=== PATIENT | female | born 1950 | race Caucasian/White ===

== ENCOUNTER 2019-11-09 08:39 | Day surgery (SDC) | payer MEDICARE, OTHER ==
[~2019-11-09] VITALS: Ht 157.5 cm; Wt 77.3 kg
[2019-11-09] MEDS ORDERED: TRIAMTERENE-HC1 EAC3 PO (09:27)
[2019-11-09] MEDS ORDERED: XALATAN 0.0052.5 ML EACH EYE (09:28)
[2019-11-09 09:34] LABS: HEMATOCRIT 46.1 % (36.0-48.0); LYMPHOCYTES 39.4 % (15-50); MCH 30.8 pg (26.0-34.0); MCHC 32.5 g/dL (31.0-37.0); MCV 94.7 fL (80.0-100.0); MEAN PLATELET VOLUME 10.4 fL (7.4-10.4); NEUTROPHILS 50.2 % (40-80); PLATELET COUNT 242 10x3/uL (130-400); RBC 4.87 10x6/uL (4.00-5.40); RDW 13.4 % (11.5-14.5); WBC 7.2 10x3/uL (4.8-10.8)
[2019-11-09 09:41] LABS: CALCIUM 8.8 mg/dL (8.5-10.1); CARBON DIOXIDE 29.1 mmol/L (21.0-32.0); CREATININE - SERUM 1.1 mg/dL (0.6-1.3); POTASSIUM - SERUM 4.1 mmol/L (3.5-5.1)
[2019-11-09 09:54] VITALS: BP 144/86; Ht 157.5 cm; Wt 77.3 kg
--- NOTE | 2019-11-09 12:37 | HP ---
PATIENT: DARIO PEARSON MEDICAL RECORD: [id number] ACCOUNT: [id number] LOCATION:[facility] : 46 ADMISSION DATE: 11/09/19 PCP: YESSENIA NO MD HISTORY AND PHYSICAL EXAMINATION HISTORY OF PRESENT ILLNESS: The patient had a number of polyps during her last colonoscopy. She had 2 that were worrisome, one was a 2 cm appendiceal orifice polyp and the other was a 2-3 cm hepatic flexure polyp. The patient is here to undergo colonoscopy with polypectomy. PAST MEDICAL AND SURGICAL HISTORY: History of colon polyps, history of cholecystectomy, history of hysterectomy. Positive for hypertension and glaucoma. SOCIAL HISTORY: The patient is a smoker. FAMILY HISTORY: Father had a pharyngeal neoplasm. Mother had a lung neoplasm. HOME MEDICINES: Please see the nursing list. ALLERGIES: No known drug allergies. PHYSICAL EXAMINATION: GENERAL: The patient does not appear acutely ill. He does not appear chronically ill. VITAL SIGNS: Reviewed. EARS: External ears appear normal. EYES: Extraocular movements are intact. NECK: Trachea is midline. CHEST: No intercostal retractions. PULMONARY: Nonlabored, no stridor. IMPRESSION: 1. Hepatic flexure polyp. 2. Appendiceal orifice polyp. PLAN: Colonoscopy with polypectomies. TRANSINT:[id number] Voice Confirmation ID: [id number] DOCUMENT ID: [id number] ROSA ADAMES MD at 1237 CC: ROE LUNSFORD MD and YESSENIA NO MD [id number] DICTATION DATE: 11/09/19 1118 VETERINARY MICROBIOLOGIST: 11/09/19 1131 [facility] [address] [place] [address]
--- NOTE | 2019-11-09 14:22 | NUR ---
1206-RECD TO ROOM FROM GI LAB 1236-TOLERATES LIQUIDS WITHOUT NAUSEA. IV D/C 1240-DR ADAMES HERE TO REPORT FINDINGS 1305-DISCHARGE INSTRUCTIONS REVIEWED, D/C HOME VIA WHEELCHAIR TO .
--- NOTE | 2019-11-12 11:06 | OP ---
PATIENT NAME: DARIO PEARSON MEDICAL RECORD: [id number] :46 LOCATION:[facility] ADMISSION DATE: SURGEON: WILIAM ADAMES MD DATE OF OPERATION: 11/09/2019 PREOPERATIVE DIAGNOSIS: 1. History of an appendiceal orifice polyp. 2. History of a tattooed hepatic flexure polyp. POSTOPERATIVE DIAGNOSES: 1. History of a hepatic flexure polyp, which has been tattooed. 2. No evidence of a residual appendiceal orifice polyp. 3. Nine small colorectal polyps, all sessile, all less than 1 cm. PROCEDURE: Total colonoscopy the cecum Biopsy forceps polypectomy x1. Endoscopic ablation of 9 small sessile colorectal polyps with the argon plasma pie maker. SURGEON: Wiliam Adames MD STRATEGIC MARKETING SPECIALIST: None. BLOOD LOSS: Minimal. ANESTHESIA: IV sedation. COMPLICATIONS: None. The risks, possible complications and alternatives to the procedure were explained to the patient. He elects to proceed. The discussion specifically included, but was not limited to, bleeding requiring emergency reoperation, infection, and endoscopic perforation. OPERATIVE COURSE: The patient was conveyed to endoscopy suite electively on 11/09/2019. IV sedation was induced by the anesthesia staff. The patient was placed in the Martinez position. A digital rectal examination was performed. A colonoscope was inserted through the anus. It was easily advanced to the cecum. The prep was adequate. I scrutinized the cecum and the appendiceal orifice and I noted no evidence of a recurrent or persistent polyp. I think patient's rustic fence builder performed enough knife biopsies that the entire polyp was removed. I slowly withdrew the endoscope. A combination of normal imaging and narrow band imaging were utilized. At the hepatic flexure, a polyp was noted. It was removed utilizing the hot biopsy forceps polypectomy technique. I continued to withdraw the endoscope. The pullback was greater than 13-minute pullback. A combination of normal imaging and narrow band imaging were utilized. In the distal colon, I noted some mild diverticulosis. Also noted were 9 small sessile polyps, all of which were ablated utilizing the argon plasma pie maker. A retroflexed view was obtained in the rectum. I then unretroflexed the scope and removed it under direct vision. I will see the patient in my office in 2 to 3 weeks. I will plan for her next OPERATIVE REPORT [id number] DARIO PEARSON colonoscopy to take place in 2-3 years. TRANSINT:[id number] Voice Confirmation ID: [id number] DOCUMENT ID: [id number] WILIAM ADAMES MD at 1106 CC: [id number] DICTATION DATE: 11/11/19 1555 [facility] PIER LABORER: 11/11/19 2323 [facility] 11/09/19 [place] [id number] [place] [id number]
== END 2019-11-09 13:05 | disposition home or self-care (01) ==
LOC: D.OPS 08:39
PROVIDERS: Anesthesiology; ATTEND Surgery
DX: K63.5 Polyp of colon (principal); Z86.010 Personal history of colon polyps; I10 Essential (primary) hypertension; Z72.0 Tobacco use